=== PATIENT | male | born 2000 | race American Indian/Alaskan Native ===

== ENCOUNTER 2019-02-28 16:09 | Emergency (ER) | payer BC ==
--- NOTE | 2019-02-28 16:16 | Event Note ---
ED Screening Note Date of service: 02/28/19 Time: 16:12 ED Screening Note: 18 y o male presents with throat pain This initial assessment/diagnostic orders/clinical plan/treatment(s) is/are subject to change based on patients health status, clinical progression and re- assessment by fellow clinical providers in the ED. Further treatment and workup at subsequent clinical providers discretion. Patient/guardian urged not to elope from the ED as their condition may be serious if not clinically assessed and managed. Initial orders include: ACC eval
[2019-02-28 16:17] VITALS: BP 111/59
[2019-02-28] MEDS ORDERED: DECADRON IM ONE (16:34)
--- NOTE | 2019-02-28 16:39 | Emergency Department Report ---
ED ENT HPI - General Chief complaint: Sore Throat Stated complaint: SORE THROAT/PAIN Time Seen by Provider: 02/28/19 16:11 Source: patient Mode of arrival: Ambulatory Limitations: No Limitations - History of Present Illness Initial comments: Patient is a 18-year-old male presents to the emergency room with complaints of a sore throat that began again a couple days ago. Patient states that approximately two weeks ago he went to [facility] and had a positive rapid strep test and was given 10 days of penicillin. He states he completed the course of antibiotics. Patient states he then began to feel sick again a couple days ago. He has associated subjective fever. patient has a past medical history of asthma and ADHD. He is unaware of any sick contacts. He denies any allergies to medications. Patient states he has not had a albuterol inhaler and long time for his asthma. - Related Data Previous Rx's Medication Instructions Recorded Last Taken Type Amoxicillin/Potassium Clav 1 each PO BID 7 Days #14 tablet 02/28/19 Unknown Rx [Augmentin 875-125 Tablet] Nystas/Diphen/Xyl Visc/Mylanta 30 ml MM TID PRN #480 ml 02/28/19 Unknown Rx [Magic Mouthwash] Allergies Allergy/AdvReac Type Severity Reaction Status Date / Time No Known Allergies Allergy Unverified 02/28/19 16:12 ED Dental HPI - General Chief complaint: Sore Throat Stated complaint: SORE THROAT/PAIN Time Seen by Provider: 02/28/19 16:11 Source: patient Mode of arrival: Ambulatory Limitations: No Limitations - Related Data Previous Rx's Medication Instructions Recorded Last Taken Type Amoxicillin/Potassium Clav 1 each PO BID 7 Days #14 tablet 02/28/19 Unknown Rx [Augmentin 875-125 Tablet] Nystas/Diphen/Xyl Visc/Mylanta 30 ml MM TID PRN #480 ml 02/28/19 Unknown Rx [Magic Mouthwash] Allergies Allergy/AdvReac Type Severity Reaction Status Date / Time No Known Allergies Allergy Unverified 02/28/19 16:12 ED Review of Systems ROS: Stated complaint: SORE THROAT/PAIN Other details as noted in HPI Comment: All other systems reviewed and negative ED Past Medical Hx - Past Medical History Previous Medical History?: Yes Hx Asthma: Yes - Surgical History Past Surgical History?: No - Social History Smoking Status: Former Smoker Substance Use Type: None - Medications Home Medications: Home Medications Medication Instructions Recorded Confirmed Last Taken Type Amoxicillin/Potassium Clav 1 each PO BID 7 Days #14 tablet 02/28/19 Unknown Rx [Augmentin 875-125 Tablet] Nystas/Diphen/Xyl Visc/Mylanta 30 ml MM TID PRN #480 ml 02/28/19 Unknown Rx [Magic Mouthwash] ED Physical Exam - General Limitations: No Limitations General appearance: alert, in no apparent distress - Head Head exam: Present: atraumatic, normocephalic - Eye Eye exam: Present: normal appearance - ENT ENT exam: Present: mucous membranes moist, TM's normal bilaterally, normal external ear exam, other (erythema and tonsillar hypertrophy of the bilateral tonsils with small exudates ) - Neck Neck exam: Present: full ROM. Absent: meningismus - Respiratory Respiratory exam: Present: wheezes (very slight wheeze diffusely on expiration). Absent: respiratory distress, rales, rhonchi, stridor, chest wall tenderness, accessory muscle use, decreased breath sounds, prolonged expiratory - Cardiovascular Cardiovascular Exam: Present: regular rate, normal rhythm, normal heart sounds. Absent: systolic murmur, diastolic murmur, rubs, gallop - Neurological Exam Neurological exam: Present: alert, oriented X3 - Psychiatric Psychiatric exam: Present: normal affect, normal mood - Skin Skin exam: Present: warm, dry, intact ED Course Vital Signs 02/28/19 16:16 Temperature 98.4 F Pulse Rate 65 Respiratory 16 Rate Blood Pressure 111/59 O2 Sat by Pulse 97 Oximetry ED Medical Decision Making - Medical Decision Making Patient is a 18-year-old male presents to the emergency room with complaints of a sore throat that began again a couple days ago. Patient states that approximately two weeks ago he went to [facility] and had a positive rapid strep test and was given 10 days of penicillin. He states he completed the course of antibiotics. Patient states he then began to feel sick again a couple days ago. He has associated subjective fever. patient has a past medical history of asthma and ADHD. He is unaware of any sick contacts. He denies any allergies to medications. Patient states he has not had a albuterol inhaler and long time for his asthma. vitals are normal. on exam: erythema and tonsillar hypertrophy of the bilateral tonsils with small exudates. examination consistent with pharyngitis/tonsillitis. pt given dexamethasone injection. pt given prescription for augmentin and magic mouthwash. advised pt to please take medication as prescribed. May take Tylenol or ibuprofen as needed for temperature 100.4 greater. May use warm salt water gargles for throat discomfort. throw away your toothbrush tonight and again in 2 days. Avoid drinking after others and do not allow others to drink after you. Follow up with a primary care doctor in approximately 3 days for reevaluation. Return to the emergency room for any worsening symptoms. Critical care attestation.: If time is entered above; I have spent that time in minutes in the direct care of this critically ill patient, excluding procedure time. ED Disposition Clinical Impression: Pharyngitis Qualifiers: Pharyngitis/tonsillitis etiology: unspecified etiology Qualified Code(s): J02.9 - Acute pharyngitis, unspecified Disposition: DC- TO HOME OR SELFCARE Is pt being admited?: No Does the pt Need Aspirin: No Condition: Stable Instructions: Pharyngitis (ED) Additional Instructions: Please take medication as prescribed. May take Tylenol or ibuprofen as needed for temperature 100.4 greater. May use warm salt water gargles for throat discomfort. throw away your toothbrush tonight and again in 2 days. Avoid drinking after others and do not allow others to drink after you. Folllow up with a primary care doctor in approximately 3 days for reevaluation. Return to the emergency room for any worsening symptoms. Prescriptions: Amoxicillin/Potassium Clav [Augmentin 875-125 Tablet] 1 each PO BID 7 Days #14 tablet Nystas/Diphen/Xyl Visc/Mylanta [Magic Mouthwash] 30 ml MM TID PRN #480 ml PRN Reason: sore throat Referrals: [facility] [Provider Group] - 2-3 Days Forms: Work/School Release Form(ED) Time of Disposition: 16:37 Print Language: AMHARIC
== END 2019-02-28 16:56 | disposition home or self-care (01) ==
LOC: ED 16:09
DX: J02.9 Acute pharyngitis, unspecified (principal); J45.909 Unspecified asthma, uncomplicated; Z87.891 Personal history of nicotine dependence
CPT/HCPCS: 96372; 99281; J1100